=== PATIENT | female | born 1970 | race Caucasian/White ===

== ENCOUNTER → 2018-10-11 08:37 | Outpatient (CLI) | payer MEDICAID ==
[~2018-10-11 08:37] MED LIST: ALBUTEROL SULF8.5 GM INH; CLARITIN 10 MG10 MG PO; COZAAR50 MG PO; FLUTICASONE PRO16 GM NASAL; GLUCOPHAGE500 MG PO; HCTZ25 MG PO; MOBIC7.5 MG PO; NEURONTIN 300300 MG PO; PRAVASTATIN SOD10 MG PO; RANITIDINE HCL150 M1; TOPAMAX50 MG PO; VICTOZA0.6 MG/0.1 SQ; VITAMIN E200 UNI1 PO; ZOLOFT100 MG PO
--- NOTE | 2018-10-19 12:04 | EC ---
PATIENT:SEAN SPANGLER DATE OF SERVICE: 10/11/18 SEX: F MEDICAL RECORD: [id number] DATE OF : 68 [facility] AGE OF PATIENT: 48 ADMISSION DATE: 10/11/18 REFERRING PHYSICIAN: INTERPRETING PHYSICIAN: JOVANNA BAILEY MD ECHOCARDIOGRAM REPORT ECHO CHARGES 4 ECHO COMPLETE Date: 10/11/18 CLINICAL DIAGNOSIS: MURMUR ECHOCARDIOGRAPHIC MEASUREMENTS (adult normal given) AC root (d.<3.7cm) 2.8 cm LV Septum d (<1.2 cm> 1.2 cm Valve Excursion 1.5 cm LV Septum (systole) 1.5 cm Left Atria (s.<4.0cm> 3.7 cm LVPW d(<1.2cm) 1.4 cm RV (d.<2.3cm) 3.7 cm LVPW (sytole) 1.8 cm LV diastole(<5.6CM) 4.5 cm MV E-F(>70mm/sec) cm LV systole 2.9 cm LVOT Diameter 1.6 cm MV exc.(>10mm) 1.5 cm Est.ejection fraction (50-75%) % DOPPLER: LVIT cm/sec A 76.0 cm/sec E 84.0 cm/sec LA cm/sec RVSP 29 mmHg LVOT 83 cm/sec AOP1/2T m/s Asc. Ao 175 cm/sec RVOT 99 cm/sec RA cm/sec PA 137 cm/sec AV Gradient Peak 12.28mmHg AV Mean 6.21 mmHg AV Area 1.5 cm MV Gradient Peak 3.87 mmHg MV Mean 1.35 mmHg MV Area cm COMMENTS: Knitting Teacher: Emiliano DELATORRE Floorworker: 1 Dr. Bailey TAPE# PACS Pericardial Effusion N DATE OF SERVICE: 10/11/2018 PROCEDURE: Echocardiogram. FINDINGS: 1. Left ventricular chamber size is within normal limits. Left ventricular systolic function is normal at 65%. 2. Left atrium is within normal limits at 3.7 cm. Right atrium and right ventricular chamber sizes are mildly dilated. 3. Valvular structures have normal structure and motion. ECHOCARDIOGRAM REPORT [id number] SEAN SPANGLER 4. Doppler interrogation reveals trace tricuspid regurgitation, no other valvular insufficiency or stenosis and pulmonary systolic pressure is normal estimated at 29 mmHg. 5. No evidence of pericardial effusion or left ventricular thrombus. TRANSINT:[id number] Voice Confirmation ID: [id number] DOCUMENT ID: [id number] JOVANNA BAILEY MD at 1204 CC: [id number] DICTATION DATE: 10/18/18 1138 LAND APPRAISER: 10/18/18 1308 DEP CLI 10/11/18 [address] [place] [address]
[2018-10-29 10:10] VITALS: BMI 39.0
== END | disposition home or self-care (01) ==
LOC: D.HCCARDIO 08:37
PROVIDERS: ATTEND Internal Medicine Cardiovascular Disease
DX: I20.9 Angina pectoris, unspecified (principal)

== ENCOUNTER 2018-10-29 09:23 | Outpatient (CLI) | payer MEDICAID ==
[~2018-10-29] VITALS: Ht 165.1 cm; Wt 106.4 kg
--- NOTE | ~2018-10-29 | HEMODYNAMI ---
PATIENT:SEAN SPANGLER MEDICAL RECORD: [id number] : 68 [facility] AD[facility]ION DATE: 10/29/18 Generatedon:10/29/201811:09 Patient name: SEAN SPANGLER Patient #: [id number] SSN: : 1970 Date of study: 10/29/2018 Page: Of Hemodynamic Procedure Report Patient Data Patient Demographics Procedure consent was obtained First Name: SEAN Gender: Female Last Name: CRYS : 1970 Middle Initial: M Age: 48 year(s) Patient #: [id number] Race: Unknown Additional ID: [id number] Contact details [address]: [address] [place] [address] State: [place] City: [place] Zip code: [address] Past Medical History Performed procedures and imaging results Date Procedure Procedure Results Comments 10/11/2018 Stress testing Indeterminant with SPECT MPI Admission Admission Data Admission Date: 10/29/2018 Admission Time: 9:23 Arrival Date: 10/29/2018 Arrival Time: 0:00 Admit Source: Other Insurance Payor: Medicaid [facility] #: [id number] Height (in.): 64.96 BSA: 2.11 (m2) Height (cm.): 165 BMI: 38.93 (kg/m2) Weight (lbs.): 233.69 Weight (kg.): 106 Lab Results Lab Result Date: 10/29/2018 Lab Result Time: 9:50 Biochemistry Name Units Result Min Max BUN mg/dl 16 --(---*)-- 7 18 Creatinine mg/dl 0.8 --(-*--)-- 0.6 1.3 CBC Name Units Result Min Max Hematocrit % 38.1 *-(----)-- 42 54 Hemoglobin g/dl 12.7 -*(----)-- 13.5 17.5 Procedure Procedure Types Cath Procedure Diagnostic Procedure LHC LHC w/Coronaries Procedure Description Procedure Date Procedure Date: 10/29/2018 Procedure Start Time: 10:56 Procedure End Time: 11:05 Procedure Staff Name Function Armand Bailey MD Performing Physician Arthur Hutton RT Monitor Erica Costa RT Scrub Donnie Ramos RN Nurse Indication Shortness of breath w/exertion Abnormal ECG Angina Procedure Data Cath Procedure Fluoroscopy Diagnostic fluoroscopy Total fluoroscopy Time: 2.2 time: 2.2 min min Diagnostic fluoroscopy Total fluoroscopy dose: 829 dose: 829 mGy mGy Contrast Material Contrast Material Type Amount (ml) Isovue 300 43 Entry Location Entry Primary Successful Side Size Upsize Upsize Entry Closure Quintero ccessful Closure Location (Fr) 1 (Fr) 2 (Fr) Remarks Device Remarks Radial Right 6 Fr Mechanical artery Short Compression Estimated blood loss: 5 ml Diagnostic catheters Device Type Used For End Catheter Placement DIAGNOSTIC Roxton 110cm 5 Procedure Fr catheter ([id number]) Procedure Complications No complications Procedure Medications Medication Administration Route Dosage Oxygen etCO2 Nasal cannula 2 l/min Lidocaine 2% added to field 20 Heparin Flush Bag added to field 2 bags (1000units/500ml NS) 0.9% NaCl I.V. 100 ml/hr Versed I.V. 2 mg Fentanyl I.V. 50 mcg Radial Cocktail I.A. 1 syringe (Verapamil 2mg/Nitro 400mcg/Heparin 1500units) Hemodynamics Rest BSA: 2.11 (m2) HGB: 12.7 (g/dl) O2 Consumption: Estimated: 195.67 (ml/min) O2 Co nsumption indexed: Estimated:92.73 (ml/min/m) Heart Rate: 55 (bpm) Pressure Samples Time Site Value (mmHg) Purpose Heart Use Rate(bpm) 10:58 LV 114/16,22 Snapshot 77 Snapshots Pre Cath Intra NCS Post Cath Vital Signs Time Heart Resp SPO2 etCO2 NIBP (mmHg) Rhythm Pain Sedation Rate (ipm) (%) (mmHg) Status Level (bpm) 10:50:05 61 12 95 37.6 Time NSR 0 (11) 10(A) Exceeded , No pain 10:51:21 57 10 96 39.8 156/83(117) NSR 0 (11) 10(A) , No pain 10:55:55 58 8 96 37.6 136/83(118) NSR 0 (11) 10(A) , No pain 10:59:55 69 10 95 41.3 135/72(95) NSR 0 (11) 10(A) , No pain 11:04:01 65 9 97 41.4 133/66(86) NSR 0 (11) 10(A) , No pain Medications Time Medication Route Dose Verified Delivered Reason Notes Effectiveness by by 10:39:23 Oxygen etCO2 2 l/min Armand Fields used for Nasal Leo Ramos RN procedure cannula 10:39:28 Lidocaine 2% added 20ml Armand Acuna for local to vial Leo Bailey MD anesthetic field 10:39:33 Heparin Flush added 2 bags Armand Acuna used for Bag to Leo Bailey MD procedure (1000units/500ml field NS) 10:39:42 0.9% NaCl I.V. 100 Armand Fields Per ml/hr Leo Ramos RN physician 10:55:10 Versed I.V. 2 mg Armand Fields for sedation Leo Ramos RN 10:55:17 Fentanyl I.V. 50 mcg Armand Fields for sedation Leo Ramos RN 10:57:38 Radial Cocktail I.A. 1 Armand Acuna for (Verapamil syringe Leo Bailey MD vasodilation 2mg/Nitro 400mcg/Heparin 1500units) Procedure Log Time Note 10:20:36 Donnie Ramos RN sent for patient. Start room use. 10:28:20 Signed procedure consent form obtained from patient. 10:28:22 Procedure Status Elective Heart Cath (OP). 10:28:23 Time tracking: Regular hours (M-F 7:00 - 5:00) 10:28:27 Plan of Care:Hemodynamics will remain stable., Cardiac rhythm will remain stable., Comfort level will be maintained., Respiratory function will remain adequate., Patient/ family verbilizes understanding of procedure., Procedure tolerated without complication., Recovers from procedure without complications.. 10:34:40 H&P Date Dictated: 10/26/2018 Within 30 days and on chart., H&P Addendum completed by physician on day of procedure. (MUST COMPLETE FOR ALL OUTPATIENTS). 10:36:21 Patient Weight : 233.69 lbs 10:36:24 Patient Height : 64.96 inches 10:36:29 Insurance Payor : Medicaid 10:36:31 Arrival Date: 10/29/2018 12:00:00 AM 10:37:53 Lab Result : BUN 16 mg/dl 10:37:53 Lab Result : Hemoglobin 12.7 g/dl 10:37:53 Lab Result : Creatinine 0.8 mg/dl 10:37:53 Lab Result : Hematocrit 38.1 % 10:37:57 Diagnostic Cath Status : Elective 10:38:01 Indication : Shortness of breath w/exertion 10:38:06 Indication : Abnormal ECG 10:38:15 Indication : Angina 10:38:24 ACC Patient presents with Unstable Angina CCS Anginal Class 4--Inability to carry out any physical activity w/o angina. Angina may occur at rest. 10:38:27 ACCPatient has been prescribed/administered the following anti-anginal medication within the last 2 weeks: ARB 10:38:32 Admit Source: Other 10:39:23 Oxygen 2 l/min etCO2 Nasal cannula was administered by Donnie Ramos RN; used for procedure; 10:39:28 Lidocaine 2% 20ml vial added to field was administered by Armand Bailey MD; for local anesthetic; 10:39:33 Heparin Flush Bag (1000units/500ml NS) 2 bags added to field was administered by Armand Bailey MD; used for procedure; 10:39:42 0.9% NaCl 100 ml/hr I.V. was administered by Donnie Ramos RN; Per physician; 10:42:19 Patient received from Pre/Post Procedure Room to CCL 2 Alert and oriented. Tansferred to table in Supine position. 10:42:21 Warm blankets applied, and aneesh hugger turned on for patient comfort. 10:42:21 Correct patient and procedure confirmed by team. 10:42:22 ECG and BP/O2 sat monitors applied to patient. 10:46:52 Vital chart was started 10:46:54 Baseline sample Acquired. 10:47:00 Rhythm: sinus bradycardia 10:47:01 Full Disclosure recording started 10:47:03 Pre-procedure instructions explained to patient. 10:47:04 Pre-op teaching completed and patient verbalized understanding. 10:47:05 Family in waiting room. 10:47:07 Patient NPO since Midnight. 10:47:08 Is the patient allergic to Iodine/contrast media? No. 10:47:10 Is patient on blood thinner?No 10:47:11 Patient diabetic? Yes. 10:47:20 If diabetic: On Metformin? Yes 10:47:23 If on Metformin: Last Dose? 10/27/2018 10:47:26 Patient not . Patient has had hysterectomy. 10:47:28 Previous problem with sedation/anesthesia? No ? 10:47:32 Snore? Yes 10:47:33 Sleep apnea? No 10:47:34 Deviated septum? No 10:47:34 Opens mouth fully? Yes 10:47:35 Sticks out tongue? Yes 10:47:37 Airway obstruction? No ? 10:47:40 Dentures? No ? 10:47:45 Pre procedure: right dorsailis pedis pulse 1+ Palpable, but thready & weak; easily obliterated 10:47:48 Modified Miguel's test Ulnar < 7 seconds 10:47:51 Patient pain scale 0/10 ?. 10:47:57 IV patent on arrival in left forearm with 0.9% NaCl at [facility]. 10:47:59 Lab results completed and on chart. 10:48:07 Right Radial & Right Groin area was prepped with chlora-prep and draped in sterile fashion 10:48:08 Alarms reviewed by R. N. 10:48:09 Sharps counted by scrub and verified by R.N. 10:52:28 Physician arrived 10:52:29 --------ALL STOP TIME OUT------ 10:52:30 Final Timeout: patient, procedure, and site verified with staff and physician. All members of the team are in agreement. 10:52:42 Right Radial & Right Groin site verified by team. 10:52:46 Fire Safety Assessment: A--An alcohol-based skin anteseptic being used preoperatively., C--Open oxygen or nitrous oxide is being used., D--An ESU, laser, or fiber-optic light is being used. 10:52:49 Physical assessment completed. ASA score P 2 - A patient with mild systemic disease as per Armand Bailey MD. 10:52:55 1) 90+ Normal kidney functon but urine findings or structural abnormalities or genetic trait point to kidney disease. 10:52:57 Maximum allowable contrast dose (3.7 X eGFR X 0.75)250 ml. 10:53:00 Sedation plan: IV Moderate Sedation Medication:Versed, Fentanyl 10:55:10 Versed 2 mg I.V. was administered by Donnie Ramos RN; for sedation; 10:55:12 Zero performed for pressure channel P1 10:55:17 Fentanyl 50 mcg I.V. was administered by Donnie Ramos RN; for sedation; 10:55:44 Use device set Radial Dx or PCI 10:55:45 ACIST Syringe (35792) opened to sterile field. 10:55:45 Medline Cath Pack ([id number]) opened to sterile field. 10:55:46 Bag Decanter (2002S) opened to sterile field. 10:55:46 ACIST Hand Control (98854) opened to sterile field. 10:55:46 ACIST Manifold (69414) opened to sterile field. 10:55:47 Tegaderm 4 x 4 (1626W) opened to sterile field. 10:55:47 MBrace Wrist Support (296738297) opened to sterile field. 10:55:49 SHEATH 6FR RAIN (6075230) opened to sterile field. 10:55:49 VIVIAN Guide Wire (892-854) opened to sterile field. 10:55:59 Procedure started. 10:56:03 Local anesthetic to right radial artery with Lidocaine 2% by Armand Bailey MD.INITIAL ACCESS ONLY 10:56:11 A 6 Fr Short sheath was inserted into the Right Radial artery 10:57:09 A DIAGNOSTIC Roxton 110cm 5 Fr catheter (330261) was advanced over the wire and used for Procedure. 10:57:38 Radial Cocktail (Verapamil 2mg/Nitro 400mcg/Heparin 1500units) 1 syringe I.A. was administered by Armand Bailey MD; for vasodilation; 10:58:29 LV gram done using [place] 10:58:35 Injector settings: Ml/sec: 5, Volume: 15, 10:58:38 LV hemodynamics recorded. 10:58:43 EF : 55 % 10:59:06 RCA angiography performed. 10:59:34 GUIDE 6FR XBLAD 3.5 catheter ([id number]) opened to sterile field. 10:59:51 Catheter exchanged over wire. 10:59:57 6 Fr xblad 3.5 guide catheter was inserted over the wire 11:00:50 LCA angiography performed. 11:01:32 Catheter removed. 11:01:45 ZEPHYR REGULAR TR BAND (240847) opened to sterile field. 11:02:21 Sheath removed intact; hemostasis achieved with Mechanical Compression to the Right Radial artery. 11:02:23 Procedure ended.(Physican Out) 11:03:35 ACCDominant side:Co-Dominant 11:03:41 Fluoroscopy time 02.20 minutes. 11:03:44 Fluoroscopy dose: 829 mGy 11:03:44 Flurop Dose total: 829 11:03:50 Dose Area Product 70150 mGy/cm. 11:03:54 Contrast amount:Isovue 300 43ml. 11:04:09 Maximum allowable dose exceeded? No. 11:04:10 Sharps counted by scrub and verified by R.N. 11:04:11 Corrigan band inflated with 7cc of air. 11:04:12 Insertion/operative site no bleeding no hematoma. 11:04:16 Post right radial artery:stable, soft, clean and dry 11:04:19 Post Procedure Pulses reassessed and unchanged 11:04:21 Post-procedure physical assessment completed. ASA score P 2 - A patient with mild systemic disease as per Armand Bailey MD. 11:04:23 Post procedure rhythm: unchanged. 11:04:24 Estimated blood loss: 5 ml 11:04:25 Post procedure instruction explained to patient.Patient verbalizes understanding. 11:04:25 Patient needs reinforcement of post procedure teaching. 11:04:47 Procedure and supply charges have been captured, reviewed, submitted and are correct. 11:04:48 Procedure Complication : No complications 11:04:51 Vital chart was stopped 11:04:51 See physician's report for complete and final results. 11:04:52 Report given to Pre/Post Procedure Room. 11:04:54 Patient transfered to Pre/Post Procedure Room with Stretcher. 11:05:01 Procedure ended. 11:05:01 Full Disclosure recording stopped 11:05:04 End room use (Document Last) Device Usage Item Name Manufacture Quantity Catalog Hospital Part Current Minima l Lot# / Number Charge Number Stock Stock Serial# Code ACIST Acist 1 25325 [id number] [id number] 20 Syringe Siesta Medical (43274) Spinal USA Inc Medline Medline 1 [id number] [id number] 78629 700942 5 Cath Pack ([id number]) Bag Microtek 1 188116 63096 565588 5 DecEggs Overnight Inc. (2002S) ACIST Hand Acist 1 52888 394986 764599 881749 5 Control Medical (42871) Systems Inc ACIST Acist 1 56406 212088 581921 316400 5 Manifold Medical (08882) Systems Inc Tegaderm 4 3M 1 1626W 550363 427375 453604 5 x 4 (1626W) MBrace Advanced 1 140-0250-00 073999 61367 449674 5 Wrist Vascular Support Dynamics ([id number]) SHEATH 6FR Cardinal 1 9273535 019906 6377350 304457 5 RAIN Health (5645554) EMERALD Cardinal 1 750-811 443148 585413 869742 5 Guide Wire Health (564-251) DIAGNOSTIC Terumo 1 40-2384 039426 197915 948902 5 Roxton 110cm 5 Fr catheter (599198) GUIDE 6FR Cardinal 1 [id number] 294728 711586 654864 10 XBLAD 3.5 Health catheter (72459750) ZEPHYR Cardinal 1 452512 788872 2194689 433822 5 REGULAR TR Health BAND (839484) Signature Audit [place] Stage Time Signature Unsigned Intra-Procedure 10/29/2018 Arthur Hutton 11:09:43 AM RT(R) Signatures Performing Physician : Signature : Armand Bailey MD Date : Time : Monitor : Arthur Hutton RT Signature : Date : Time : Nurse : Donnie Ramos RN Signature : Date : Time : [facility] [address] [place], [place] [address]
[2018-10-29] MEDS ORDERED: RANITIDINE HCL150 M1 (09:36)
[2018-10-29] MEDS ORDERED: PRAVASTATIN SOD10 MG PO (09:37)
[2018-10-29] MEDS ORDERED: TOPAMAX50 MG PO (09:38)
[2018-10-29] MEDS ORDERED: FLUTICASONE PRO16 GM NASAL (09:39)
[2018-10-29] MEDS ORDERED: ALBUTEROL SULF8.5 GM INH (09:40)
[2018-10-29] MEDS ORDERED: NEURONTIN 300300 MG PO (09:40)
[2018-10-29] MEDS ORDERED: CLARITIN 10 MG10 MG PO (09:40)
[2018-10-29] MEDS ORDERED: HCTZ25 MG PO (09:41)
[2018-10-29] MEDS ORDERED: GLUCOPHAGE500 MG PO (09:41)
[2018-10-29] MEDS ORDERED: COZAAR50 MG PO (09:41)
[2018-10-29] MEDS ORDERED: MOBIC7.5 MG PO (09:42)
[2018-10-29] MEDS ORDERED: VICTOZA0.6 MG/0.1 SQ (09:42)
[2018-10-29] MEDS ORDERED: ZOLOFT100 MG PO (09:42)
[2018-10-29] MEDS ORDERED: VITAMIN E200 UNI1 PO (09:43)
[2018-10-29 10:05] LABS: BASOPHILS 0.1 % (0-2); EOSINOPHILS 10.9 % (0-7); HEMATOCRIT 38.1 % (36.0-48.0); HEMOGLOBIN 12.7 g/dL (12-16); IMMATURE GRANULOCYTES 0.1 % (0-5); LYMPHOCYTES 17.3 % (15-50); MCH 26.5 pg (26.0-34.0); MCHC 33.3 g/dL (31.0-37.0); MCV 79.4 fL (80.0-100.0); MEAN PLATELET VOLUME 9.5 fL (7.4-10.4); NEUTROPHILS 65.6 % (40-80); PLATELET COUNT 236 10x3/uL (130-400); RDW 15.3 % (11.5-14.5); WBC 8.4 10x3/uL (4.8-10.8)
[2018-10-29 10:10] VITALS: BP 165/64; Ht 165.1 cm; Wt 106.4 kg
[2018-10-29 10:25] LABS: ALT (SGPT) 24 U/L (10-68); CALC OSMOLALITY 285 mosm/kg (275-300); CALCIUM 8.8 mg/dL (8.5-10.1); CARBON DIOXIDE 24.1 mmol/L (21.0-32.0); CHLORIDE - SERUM 108 mmol/L (98-107); CHOL - HDL RATIO 4.4 ratio (2.3-4.1); CHOLESTEROL, TOTAL 179 mg/dL (0-200); CREATININE - SERUM 0.8 mg/dL (0.6-1.3); GLUCOSE 128 mg/dL (74-106); HDL CHOLESTEROL 41 mg/dL (32-96); LDL CHOLESTEROL 121 mg/dL (0-100); POTASSIUM - SERUM 3.7 mmol/L (3.5-5.1); SODIUM 142 mmol/L (136-145); TRIGLYCERIDE 86 mg/dL (30-200); UREA NITROGEN 16 mg/dL (7-18); eGFR NON AFRICAN AMERICAN 81 mL/min (90-120)
--- NOTE | 2018-10-29 11:16 | NUR ---
PT ARRIVED BY STRETCHER. PLACED ON MONITOR. ASSESSMENT COMPLETED. VSS. FAMILY AT BEDSIDE.
--- NOTE | 2018-10-29 11:31 | NUR ---
RIGHT RADIAL BAND IN PLACE. NO BLEEDING/HEMATOMA NOTED. CALL LIGHT WITHIN REACH. FAMILY AT BEDSIDE.
--- NOTE | 2018-10-29 12:00 | NUR ---
4cc OF AIR REMOVED FROM TR BAND. NO BLEEDING/HEMATOMA NOTED. VSS. CALL LIGHT WITHIN REACH. PT SET UP WITH SANDWICH TRAY AND DRINK. VSS. DENIES NAUSEA.
--- NOTE | 2018-10-29 12:15 | NUR ---
3cc OF AIR REMOVED FROM Z BAND. TOLERATING WELL. NO BLEEDING/HEMATOMA NOTED.
--- NOTE | 2018-10-29 12:30 | NUR ---
3cc OF AIR REMOVED FROM Z BAND. TOLERATING WELL. PIV D/C'D WITH CATH TIP INTACT. PT TOLERATED WELL. PT INSTRUCTED TO GET UP AND DRESSED
--- NOTE | 2018-10-29 12:45 | NUR ---
DISCUSSED DISCHARGE INSTRUCTIONS WITH PT AND PT'S FAMILY. THEY VOICED UNDERSTANDING. BAND REMOVED FROM RIGHT WRIST AND DRESSING APPLIED. NO BLEEDING/HEMATOMA NOTED. PT AMBULATED TO RESTROOM. VOIDED WITHOUT DIFFICULTY.
--- NOTE | 2018-10-29 12:59 | NUR ---
PT TAKEN OUT TO VEHICLE BY WHEELCHAIR. NO S/S OF DISTRESS NOTED. ALL BELONGINGS AND PAPERWORK IN HAND.
--- NOTE | 2018-11-10 14:31 | OP ---
PATIENT NAME: SEAN SPANGLER MEDICAL RECORD: [id number] :68 LOCATION:[facility] ADMISSION DATE: SURGEON: JOVANNA RILEY MD DATE OF OPERATION: 10/29/2018 PROCEDURES: 1. Left heart catheterization. 2. Selective coronary angiography. 3. Left ventriculogram. INDICATION: Continued anginal chest discomfort, abnormal nuclear stress test. PROCEDURE IN DETAIL: After informed consent was obtained and after a detailed description of risks, benefits as well as alternative therapies, the patient elected to proceed with angiogram and heart catheterization. The right radial area was prepped and draped in normal sterile fashion. Right radial artery was cannulated via modified Seldinger technique with placement of 5-Occitan sheath. All catheters exchanged through this sheath. FINDINGS: Left ventriculogram was performed in standard 30-degree [place] view, reveals good cardiac wall motion, ejection fraction is 60%. SELECTIVE CORONARY ANGIOGRAPHY: Left main, left anterior descending, left circumflex, right coronary artery all smooth-walled vessels with no angiographic evidence of coronary artery disease. OVERALL IMPRESSION: 1. No angiographic evidence of coronary artery disease. 2. Normal left heart pressures. 3. Normal left ventricular systolic function. Chest pain is noncardiac in etiology. TRANSINT:[id number] Voice Confirmation ID: [id number] DOCUMENT ID: [id number] JOVANNA RILEY MD at 1431 CC: [id number] DICTATION DATE: 10/29/18 1106 THREAD MACHINE OPERATOR: 10/29/18 1114 DEP CLI 10/29/[address] [address]
== END 2018-10-29 12:58 | disposition home or self-care (01) ==
LOC: D.CATH 09:23
PROVIDERS: ATTEND Internal Medicine Interventional Cardiology
DX: R07.89 Other chest pain (principal); Z01.812 Encounter for preprocedural laboratory examination

== ENCOUNTER → 2019-01-24 20:06 | Outpatient (CLI) | payer MEDICAID ==
[2018-10-29 10:10] VITALS: BMI 39.0
[2019-01-24 21:12] LABS: CHOL - HDL RATIO 3.7 ratio (2.3-4.1); LDL-HDL RATIO 2.1 ratio (1.5-3.5)
== END | disposition home or self-care (01) ==
LOC: D.LABREF 20:06
PROVIDERS: ATTEND Internal Medicine Interventional Cardiology
DX: E78.5 Hyperlipidemia, unspecified (principal)